=== PATIENT | female | born 1935 | race Caucasian/White ===

== ENCOUNTER 2023-01-25 11:17 | Inpatient (IN) | payer MEDICARE, OTHER ==
[2023-01-25] MEDS ORDERED: Iopamidol 300 61% 100 ML VIAL FS ONE (11:46)
[2023-01-25] MEDS ORDERED: Furosemide 40 MG/4 ML VIAL ONE (11:57)
[2023-01-25 12:14] LABS: #Monocytes 0.6 10x3/uL (0.0-1.1); #Neutrophils 7.5 10x3/uL (1.5-8.4); %Basophils 0.3 % (0.0-2.0); %Eosinophils 0.3 % (0.0-6.0); %Lymphocytes 7.4 % (18.0-47.0); %Monocytes 6.7 % (0.0-10.0); %Neutrophils 85.1 % (40.0-75.0); Hemoglobin 14.4 g/dL (12.0-15.5); Mean Corpuscular HGB CONC 34.2 g/dL (32.0-36.0); Mean Corpuscular Hemoglobin 30.5 pg (27.0-33.0); Mean Corpuscular Volume 89.2 fl (81.6-98.3); Mean Platelet Volume 9.9 fl (7.4-10.4); Platelet Count 253 10x3/uL (150-450); RBC Distribution Width 13.3 % (11.5-14.5); Red Blood Cell (RBC) Count 4.72 10x6/uL (3.90-5.03); White Blood Cell (WBC) Count 8.9 10x3/uL (3.5-10.5)
[2023-01-25 12:25] LABS: ALT (SGPT) 130 U/L (8-55); AST (SGOT) 101 U/L (5-34); Albumin 4.1 g/dL (3.4-4.8); Alkaline Phosphatase 82 U/L (40-110); Anion Gap 18 mmol/L (10-20); BUN (Urea Nitrogen) 21 mg/dL (9.8-20.1); Bilirubin, Total 0.9 mg/dL (0.2-1.2); Calc. Creatinine Clearance 0 mL/min (70-130); Calcium 9.2 mg/dL (7.8-10.44); Carbon Dioxide 17 mmol/L (23-31); Chloride 101 mmol/L (98-107); Estimated GFR 71; Globulin 2.8 g/dL (2.4-3.5); Glucose 120 mg/dL (83-110); Magnesium 2.1 mg/dL (1.6-2.6); Potassium 4.7 mmol/L (3.5-5.1); Protein, Total 6.9 g/dL (5.8-8.1); Sodium 131 mmol/L (136-145)
[2023-01-25 12:26] LABS: Actual Bicarbonate (HCO3v) 19 mEq/L (22-28); Base Excess -3.1 mEq/L (-2 - +2); Calcium, Ionized (venous) 1.16 mmol/L (1.16-1.32); Chloride (VBG) 95 mmol/L (98-106); Hemoglobin (Hb) 15.5 g/dL (11.7-16.1); Potassium (VBG) 4.68 mmol/L (3.70-5.30); Puncture Site Other Site; Sodium 134.8 mmol/L (133-146); pH (venous) 7.46 (7.32-7.43)
[2023-01-25 12:36] LABS: SARS-CoV-2 NAA Rapid Test Not Detected (NotDetected)
[2023-01-25 12:45] LABS: CKMB 3.4 ng/mL (0-6.6)
[2023-01-25] MEDS ORDERED: Aspirin Chewable 81 MG TAB ONE (12:58)
[2023-01-25] MEDS ORDERED: Acetaminophen 325 MG TAB PO PRN (13:21)
[2023-01-25] MEDS ORDERED: Senokot S 8.6-50 MG TAB PO PRN (13:21)
[2023-01-25 16:04] LABS: Troponin I 0.094 ng/mL (< 0.028)
[2023-01-25] MEDS ORDERED: Losartan Potassium 50 MG TAB PO SCH (16:30)
[2023-01-25 17:42] LABS: Thyroid Stimulating Hormone 4.5045 uIU/mL (0.35-4.94)
[2023-01-25 19:19] LABS: Troponin I 0.093 ng/mL (< 0.028)
[2023-01-25 19:21] LABS: Bilirubin Neg (Negative); Blood, Urine 10 (Negative); Clarity Clear (Clear); Glucose, Urine (Dipstick) Normal (Negative); Ketone, Urine Negative (Negative); Leukocyte Negative (Negative); Nitrite Negative (Negative); Protein, Urine (Dipstick) Negative (Neg-Trace); Specific Gravity, Urine 1.005 (1.005-1.030); Urobilinogen Normal mg/dL (Less than 2)
[2023-01-25 19:57] LABS: Bacteria/HPF Rare-Few HPF (None Seen); RBC/HPF 0-3 HPF (0-3); Squamous Epithelial 0-3 HPF (0-3); WBC/HPF 0-3 HPF (0-3)
[2023-01-25] MEDS: Diclofenac 1% 100 GM GEL TP SCH (21:30)
[2023-01-26] MEDS ORDERED: Melatonin 3 MG TAB PO SCH (00:30)
[2023-01-26] MEDS ORDERED: Guaifenesin DM 100-10/5 ML UDCUP PO SCH (00:30)
[2023-01-26 04:47] LABS: #Eosinphils 0.2 10x3/uL (0.0-0.5); #Monocytes 0.7 10x3/uL (0.0-1.1); #Neutrophils 4.9 10x3/uL (1.5-8.4); %Basophils 0.4 % (0.0-2.0); %Eosinophils 2.4 % (0.0-6.0); %Lymphocytes 17.1 % (18.0-47.0); %Monocytes 9.4 % (0.0-10.0); %Neutrophils 70.3 % (40.0-75.0); Hemoglobin 13.2 g/dL (12.0-15.5); Mean Corpuscular HGB CONC 34.5 g/dL (32.0-36.0); Mean Corpuscular Hemoglobin 30.6 pg (27.0-33.0); Mean Corpuscular Volume 88.7 fl (81.6-98.3); Mean Platelet Volume 10.1 fl (7.4-10.4); Platelet Count 230 10x3/uL (150-450); RBC Distribution Width 13.3 % (11.5-14.5); Red Blood Cell (RBC) Count 4.32 10x6/uL (3.90-5.03)
[2023-01-26 05:02] LABS: ALT (SGPT) 102 U/L (8-55); AST (SGOT) 70 U/L (5-34); Albumin 3.4 g/dL (3.4-4.8); Alkaline Phosphatase 69 U/L (40-110); Anion Gap 13 mmol/L (10-20); BUN (Urea Nitrogen) 16 mg/dL (9.8-20.1); Bilirubin, Total 0.9 mg/dL (0.2-1.2); Calc. Creatinine Clearance 40 mL/min (70-130); Calcium 8.8 mg/dL (7.8-10.44); Carbon Dioxide 25 mmol/L (23-31); Cardiac Risk 2.6 (Less than 4.5); Chloride 98 mmol/L (98-107); Cholesterol 140 mg/dl (< 200 Desired); Estimated GFR 72; Globulin 2.4 g/dL (2.4-3.5); Glucose 94 mg/dL (83-110); HDL Cholesterol 54 mg/dL (>60 Neg Risk); LDL Cholesterol, Calculated 73 mg/dL; Potassium 3.2 mmol/L (3.5-5.1); Protein, Total 5.8 g/dL (5.8-8.1); Sodium 133 mmol/L (136-145); Triglycerides 64 mg/dL (Less than 150)
[2023-01-26 05:14] LABS: Free T4 (Free Thyroxine) 1.25 ng/dL (0.70-1.48)
[2023-01-26] MEDS: Furosemide 40 MG/4 ML VIAL SLOW IVP SCH ×2 (06:27→14:51)
[2023-01-26] MEDS: Aspirin 81 mg Enteric Coated Tablet PO SCH (08:17)
[2023-01-26] MEDS: Diclofenac 1% 100 GM GEL TP SCH ×4 (08:17→21:18)
[2023-01-26] MEDS: Losartan Potassium 50 MG TAB PO SCH (08:17)
[2023-01-26] MEDS ORDERED: Furosemide 40 MG/4 ML VIAL SLOW IVP SCH (09:00)
[2023-01-26] MEDS ORDERED: Carvedilol 6.25 MG TAB PO SCH (11:00)
[2023-01-26] MEDS ORDERED: Electrolyte Replacement Protocol 1 EACH FS SCH (13:00)
[2023-01-26] MEDS: Potassium Chloride 20 MEQ TAB PO SCH ×2 (14:50→21:18)
[2023-01-26 17:20] LABS: Iron 51 ug/dL (50-170); Iron Binding Capacity, Total 326 mcg/dL (265-497)
[2023-01-26] MEDS: Carvedilol 6.25 MG TAB PO SCH (17:45)
[2023-01-26] MEDS ORDERED: Temazepam 15 MG CAP PO SCH (21:00)
[2023-01-26] MEDS: Atorvastatin Calcium 20 MG TAB PO SCH (21:17)
[2023-01-27 04:49] LABS: Phosphorus 3.5 mg/dL (2.3-4.7)
[2023-01-27 04:54] LABS: ALT (SGPT) 85 U/L (8-55); AST (SGOT) 52 U/L (5-34); Albumin 3.3 g/dL (3.4-4.8); Alkaline Phosphatase 65 U/L (40-110); Anion Gap 14 mmol/L (10-20); BUN (Urea Nitrogen) 20 mg/dL (9.8-20.1); Bilirubin, Total 0.7 mg/dL (0.2-1.2); Calc. Creatinine Clearance 31 mL/min (70-130); Calcium 8.8 mg/dL (7.8-10.44); Carbon Dioxide 24 mmol/L (23-31); Chloride 96 mmol/L (98-107); Estimated GFR 55; Globulin 2.3 g/dL (2.4-3.5); Glucose 96 mg/dL (83-110); Magnesium 1.9 mg/dL (1.6-2.6); Potassium 4.8 mmol/L (3.5-5.1); Protein, Total 5.6 g/dL (5.8-8.1); Sodium 129 mmol/L (136-145)
[2023-01-27 04:55] LABS: INR-International Normal Ratio 1.1; PTT 26.5 sec (22.0-33.0); Prothrombin Time 11.4 sec (9.5-12.1)
[2023-01-27] MEDS: Levothyroxine Sodium 75 MCG TAB PO SCH (05:43)
[2023-01-27] MEDS: Furosemide 40 MG/4 ML VIAL SLOW IVP SCH ×2 (05:43→15:25)
[2023-01-27] MEDS ORDERED: Magnesium 2 GM/50 ML(in water) 2 GM in Premix Bag 1 BAG IVPB SCH (06:00)
[2023-01-27] MEDS: Guaifenesin DM 100-10/5 ML UDCUP PO PRN ×2 (06:17→16:01)
[2023-01-27] MEDS: Carvedilol 6.25 MG TAB PO SCH ×2 (09:22→18:08)
[2023-01-27] MEDS: Aspirin 81 mg Enteric Coated Tablet PO SCH (09:22)
[2023-01-27] MEDS: Diclofenac 1% 100 GM GEL TP SCH ×4 (09:22→20:54)
[2023-01-27] MEDS: Losartan Potassium 50 MG TAB PO SCH (09:22)
[2023-01-27] MEDS ORDERED: Temazepam 15 MG CAP PO SCH (10:04)
[2023-01-27] MEDS ORDERED: Communication Order-Pharmacy FS SCH (16:15)
[2023-01-27 18:02] LABS: Bilirubin Neg (Negative); Blood, Urine Negative (Negative); Clarity Clear (Clear); Glucose, Urine (Dipstick) Normal (Negative); Ketone, Urine Negative (Negative); Leukocyte 500 (Negative); Nitrite Negative (Negative); Protein, Urine (Dipstick) 15 mg/dl (Neg-Trace); Specific Gravity, Urine 1.005 (1.005-1.030); Urobilinogen Normal mg/dL (Less than 2)
[2023-01-27 18:05] LABS: RBC/HPF 0-3 HPF (0-3); Renal Epithelial 0-3 HPF (None Seen); Squamous Epithelial 0-3 HPF (0-3)
[2023-01-27 18:06] LABS: Bacteria/HPF 3+ HPF (None Seen)
[2023-01-27] MEDS: rOPINIRole HCl 0.25 MG TAB PO PRN (20:54)
[2023-01-27] MEDS: Atorvastatin Calcium 20 MG TAB PO SCH (20:54)
[2023-01-27] MEDS: ALPRAZolam 0.25 MG TAB PO SCH (20:54)
[2023-01-28 04:46] LABS: ALT (SGPT) 69 U/L (8-55); AST (SGOT) 39 U/L (5-34); Albumin 3.3 g/dL (3.4-4.8); Alkaline Phosphatase 61 U/L (40-110); Anion Gap 16 mmol/L (10-20); BUN (Urea Nitrogen) 22 mg/dL (9.8-20.1); Bilirubin, Total 0.7 mg/dL (0.2-1.2); Calc. Creatinine Clearance 34 mL/min (70-130); Calcium 8.7 mg/dL (7.8-10.44); Carbon Dioxide 23 mmol/L (23-31); Chloride 95 mmol/L (98-107); Estimated GFR 61; Globulin 2.5 g/dL (2.4-3.5); Glucose 90 mg/dL (83-110); Potassium 3.8 mmol/L (3.5-5.1); Protein, Total 5.8 g/dL (5.8-8.1); Sodium 130 mmol/L (136-145)
[2023-01-28] MEDS ORDERED: Magnesium 2 GM/50 ML(in water) 2 GM in Premix Bag 1 BAG IVPB SCH (06:00)
[2023-01-28] MEDS: Levothyroxine Sodium 75 MCG TAB PO SCH (06:18)
[2023-01-28] MEDS: Aspirin 81 mg Enteric Coated Tablet PO SCH (06:18)
[2023-01-28] MEDS: Carvedilol 6.25 MG TAB PO SCH ×2 (06:18→17:12)
[2023-01-28] MEDS: Spironolactone 25 MG TAB PO SCH (09:00)
[2023-01-28] MEDS: Furosemide 40 MG TAB PO SCH (09:00)
[2023-01-28] MEDS: Potassium Chloride 10 MEQ TAB PO SCH (09:00)
[2023-01-28] MEDS: Losartan Potassium 50 MG TAB PO SCH (09:00)
[2023-01-28] MEDS: Diclofenac 1% 100 GM GEL TP SCH ×4 (09:00→20:29)
[2023-01-28] MEDS ORDERED: Nitroglycerin 50 MG/250 ML BOT 0 ML ONE (11:46)
[2023-01-28] MEDS ORDERED: Lidocaine 1% (PF) 30 ML VIAL ONE (11:47)
[2023-01-28] MEDS ORDERED: Heparin 10,000 UNITS/ 10 ML VIAL ONE (11:47)
[2023-01-28] MEDS ORDERED: Adenosine 6 MG/2 ML VIAL ONE (11:47)
[2023-01-28] MEDS ORDERED: Sodium Chloride 0.9% 1,000 ML ONE (11:48)
[2023-01-28] MEDS ORDERED: Fentanyl 100 MCG/2 ML VIAL ONE (12:35)
[2023-01-28] MEDS ORDERED: Midazolam HCl 2 mg/2 ml Vial ONE (12:36)
[2023-01-28] MEDS ORDERED: Atropine Sulfate 0.4 mg/1 ml Vial ONE (13:01)
[2023-01-28] MEDS ORDERED: TICAGRELOR 90 MG TABLET ONE (13:02)
[2023-01-28] MEDS ORDERED: Protamine Sulfate 250 MG/25 ML VIAL ONE (14:38)
[2023-01-28] MEDS ORDERED: Iopamidol 300 61% 100 ML VIAL FS ONE (15:04)
[2023-01-28] MEDS: cefTRIAXone\\ROCEPHIN 1 GM in Sodium Chloride 0.9% 100 ML IVPB SCH (15:46)
[2023-01-28] MEDS: Atorvastatin Calcium 40 MG TAB PO SCH (20:29)
[2023-01-28] MEDS: TICAGRELOR 90 MG TABLET PO SCH (20:29)
[2023-01-28] MEDS: ALPRAZolam 0.25 MG TAB PO SCH (20:29)
[2023-01-29 03:31] LABS: #Eosinphils 0.1 10x3/uL (0.0-0.5); #Monocytes 0.8 10x3/uL (0.0-1.1); #Neutrophils 6.6 10x3/uL (1.5-8.4); %Basophils 0.2 % (0.0-2.0); %Lymphocytes 6.9 % (18.0-47.0); %Monocytes 9.7 % (0.0-10.0); %Neutrophils 81.6 % (40.0-75.0); Hemoglobin 12.4 g/dL (12.0-15.5); Mean Corpuscular HGB CONC 34.2 g/dL (32.0-36.0); Mean Corpuscular Hemoglobin 30.4 pg (27.0-33.0); Mean Platelet Volume 9.8 fl (7.4-10.4); Platelet Count 259 10x3/uL (150-450); RBC Distribution Width 13.3 % (11.5-14.5); Red Blood Cell (RBC) Count 4.08 10x6/uL (3.90-5.03); White Blood Cell (WBC) Count 8.1 10x3/uL (3.5-10.5)
[2023-01-29 03:44] LABS: ALT (SGPT) 62 U/L (8-55); AST (SGOT) 72 U/L (5-34); Albumin 3.4 g/dL (3.4-4.8); Alkaline Phosphatase 62 U/L (40-110); Anion Gap 14 mmol/L (10-20); BUN (Urea Nitrogen) 18 mg/dL (9.8-20.1); Bilirubin, Total 1.1 mg/dL (0.2-1.2); Calc. Creatinine Clearance 32 mL/min (70-130); Calcium 8.6 mg/dL (7.8-10.44); Carbon Dioxide 26 mmol/L (23-31); Chloride 96 mmol/L (98-107); Estimated GFR 57; Globulin 2.5 g/dL (2.4-3.5); Glucose 97 mg/dL (83-110); Magnesium 2.5 mg/dL (1.6-2.6); Potassium 3.5 mmol/L (3.5-5.1); Protein, Total 5.9 g/dL (5.8-8.1); Sodium 132 mmol/L (136-145)
[2023-01-29] MEDS: Levothyroxine Sodium 75 MCG TAB PO SCH (05:44)
[2023-01-29] MEDS ORDERED: Potassium Chloride 20 MEQ TAB PO SCH (08:00)
[2023-01-29] MEDS ORDERED: Methyl Salicylate/Menthol 85 GM TUBE TOP PRN (08:29)
[2023-01-29] MEDS: Furosemide 40 MG TAB PO SCH (08:45)
[2023-01-29] MEDS: Potassium Chloride 10 MEQ TAB PO SCH (08:45)
[2023-01-29] MEDS: TICAGRELOR 90 MG TABLET PO SCH ×2 (08:45→21:27)
[2023-01-29] MEDS: Carvedilol 6.25 MG TAB PO SCH ×3 (08:45→16:34)
[2023-01-29] MEDS: Losartan Potassium 50 MG TAB PO SCH (08:45)
[2023-01-29] MEDS: Aspirin Chewable 81 MG TAB PO SCH (08:45)
[2023-01-29] MEDS: Spironolactone 25 MG TAB PO SCH (08:45)
[2023-01-29] MEDS: Diclofenac 1% 100 GM GEL TP SCH ×4 (08:48→21:39)
[2023-01-29] MEDS: rOPINIRole HCl 0.25 MG TAB PO PRN ×2 (12:48→21:40)
[2023-01-29] MEDS: cefTRIAXone\\ROCEPHIN 1 GM in Sodium Chloride 0.9% 100 ML IVPB SCH (12:49)
[2023-01-29] MEDS: Atorvastatin Calcium 40 MG TAB PO SCH (21:26)
[2023-01-29] MEDS: ALPRAZolam 0.25 MG TAB PO SCH (21:27)
[2023-01-30 03:57] LABS: #Basophils 0.1 10x3/uL (0.0-0.2); #Eosinphils 0.3 10x3/uL (0.0-0.5); #Monocytes 0.9 10x3/uL (0.0-1.1); #Neutrophils 5.6 10x3/uL (1.5-8.4); %Basophils 0.8 % (0.0-2.0); %Eosinophils 3.7 % (0.0-6.0); %Lymphocytes 12.1 % (18.0-47.0); %Monocytes 11.7 % (0.0-10.0); %Neutrophils 71.1 % (40.0-75.0); Hemoglobin 11.5 g/dL (12.0-15.5); Mean Corpuscular HGB CONC 33.8 g/dL (32.0-36.0); Mean Corpuscular Hemoglobin 30.4 pg (27.0-33.0); Mean Corpuscular Volume 89.9 fl (81.6-98.3); Platelet Count 225 10x3/uL (150-450); RBC Distribution Width 13.3 % (11.5-14.5); Red Blood Cell (RBC) Count 3.78 10x6/uL (3.90-5.03); White Blood Cell (WBC) Count 7.8 10x3/uL (3.5-10.5)
[2023-01-30 04:01] LABS: ALT (SGPT) 53 U/L (8-55); AST (SGOT) 87 U/L (5-34); Albumin 3.3 g/dL (3.4-4.8); Alkaline Phosphatase 60 U/L (40-110); Anion Gap 13 mmol/L (10-20); BUN (Urea Nitrogen) 19 mg/dL (9.8-20.1); Calc. Creatinine Clearance 28 mL/min (70-130); Calcium 8.5 mg/dL (7.8-10.44); Carbon Dioxide 26 mmol/L (23-31); Chloride 96 mmol/L (98-107); Estimated GFR 50; Globulin 2.4 g/dL (2.4-3.5); Glucose 91 mg/dL (83-110); Potassium 4.5 mmol/L (3.5-5.1); Protein, Total 5.7 g/dL (5.8-8.1); Sodium 130 mmol/L (136-145)
[2023-01-30] MEDS: Levothyroxine Sodium 75 MCG TAB PO SCH (06:05)
[2023-01-30 06:27] VITALS: BMI 20.5
[2023-01-30] MEDS: Losartan Potassium 50 MG TAB PO SCH (08:37)
[2023-01-30] MEDS: Spironolactone 25 MG TAB PO SCH (08:37)
[2023-01-30] MEDS: TICAGRELOR 90 MG TABLET PO SCH (08:38)
[2023-01-30] MEDS: Carvedilol 6.25 MG TAB PO SCH (08:38)
[2023-01-30] MEDS: Furosemide 40 MG TAB PO SCH (08:38)
[2023-01-30] MEDS: Aspirin Chewable 81 MG TAB PO SCH (08:41)
[2023-01-30] MEDS: Potassium Chloride 10 MEQ TAB PO SCH (08:41)
[2023-01-30] MEDS: Diclofenac 1% 100 GM GEL TP SCH ×2 (08:42→12:50)
[2023-01-30 10:19] VITALS: TEMP 97.5
[2023-01-30] MEDS: cefTRIAXone\\ROCEPHIN 1 GM in Sodium Chloride 0.9% 100 ML IVPB SCH (12:10)
[2023-01-30 12:21] VITALS: BP 125/59
== END 2023-01-30 17:00 | disposition home or self-care (01) | DRG 246 ==
LOC: CSHERS 11:17 → CSHTELE 15:59 → CSHIMCU 01-28 14:54
PROVIDERS: ADMIT Family Medicine; ATTEND Internal Medicine
PROC: 027135Z Dilation of Coronary Artery, Two Arteries with Two Drug-eluting Intraluminal Devices, Percutaneous Approach (ICD-10-PCS; principal; 2023-01-28)
PROC: 4A023N7 Measurement of Cardiac Sampling and Pressure, Left Heart, Percutaneous Approach (ICD-10-PCS; 2023-01-28)
PROC: B2151ZZ Fluoroscopy of Left Heart using Low Osmolar Contrast (ICD-10-PCS; 2023-01-28)
PROC: B2111ZZ Fluoroscopy of Multiple Coronary Arteries using Low Osmolar Contrast (ICD-10-PCS; 2023-01-28)
PROC: B241ZZ3 Ultrasonography of Multiple Coronary Arteries, Intravascular (ICD-10-PCS; 2023-01-28)
DX: I13.0 Hypertensive heart and chronic kidney disease with heart failure and stage 1 through stage 4 chronic kidney disease, or unspecified chronic kidney disease (principal); I50.43 Acute on chronic combined systolic (congestive) and diastolic (congestive) heart failure; E87.1 Hypo-osmolality and hyponatremia; N39.0 Urinary tract infection, site not specified; I24.8 Other forms of acute ischemic heart disease; E03.9 Hypothyroidism, unspecified; E78.5 Hyperlipidemia, unspecified; I49.3 Ventricular premature depolarization; E83.42 Hypomagnesemia; G47.00 Insomnia, unspecified; I25.10 Atherosclerotic heart disease of native coronary artery without angina pectoris; B95.2 Enterococcus as the cause of diseases classified elsewhere; I25.5 Ischemic cardiomyopathy; E87.6 Hypokalemia; R53.81 Other malaise; G89.29 Other chronic pain; N18.2 Chronic kidney disease, stage 2 (mild); M54.50 Low back pain, unspecified; Z90.49 Acquired absence of other specified parts of digestive tract; Z79.890 Hormone replacement therapy; Z98.890 Other specified postprocedural states; Z90.89 Acquired absence of other organs; Z85.038 Personal history of other malignant neoplasm of large intestine; Z20.822 Contact with and (suspected) exposure to COVID-19
CPT/HCPCS: 36415; 71045; 71275; 76705; 80053; 80061; 81001; 82553; 82728; 82805; 83540; 83550; 83735; 83880; 84100; 84300; 84436; 84439; 84443; 84484; 85025; 85347; 85379; 85610; 85652; 85730; 87077; 87086; 87186; 92928; 92978; 92979; 93005; 93010; 93306; 93458; 94760; 94762; 96374; 99152; 99153; C1725; C1726; C1753; C1760; C1769; C1874; C1887; C9600; J0153; J0461; J0696; J1644; J1650; J1940; J2001; J2250; J2720; J3010; J3475; J3490; J7050; Q9967; U0002

== ENCOUNTER 2024-01-08 10:49 | Emergency (ER) | payer MEDICARE, OTHER ==
[2024-01-08] MEDS ORDERED: Iopamidol 300 61% 100 ML VIAL FS ONE (11:23)
[2024-01-08 11:58] LABS: Bilirubin Neg (Negative); Blood, Urine 10 (Negative); Clarity Clear (Clear); Glucose, Urine (Dipstick) Normal (Negative); Ketone, Urine Negative (Negative); Leukocyte 100 (Negative); Nitrite Negative (Negative); Protein, Urine (Dipstick) Negative (Neg-Trace); Urobilinogen Normal mg/dL (Less than 2)
[2024-01-08 12:22] LABS: CAUTI Indications for Culture Dysuria,urgency,freq; RBC/HPF 0-3 HPF (0-3)
[2024-01-08 12:23] LABS: Bacteria/HPF Rare-Few HPF (None Seen); Squamous Epithelial 0-3 HPF (0-3); Urine Culture Reflex No No
[2024-01-08 12:49] LABS: #Basophils 0.04 10x3/uL (0.0-0.2); #Neutrophils 6.56 10x3/uL (1.5-8.4); %Basophils 0.5 % (0.0-2.0); %Eosinophils 1.2 % (0.0-6.0); %Lymphocytes 8.6 % (18.0-47.0); %Monocytes 9.7 % (0.0-10.0); %Neutrophils 79.5 % (40.0-75.0); Hematocrit 35.7 % (34.9-44.5); Hemoglobin 12.6 g/dL (12.0-15.5); Mean Corpuscular HGB CONC 35.3 g/dL (32.0-36.0); Mean Corpuscular Hemoglobin 32.2 pg (27.0-33.0); Mean Corpuscular Volume 91.3 fl (81.6-98.3); Mean Platelet Volume 10.3 fl (7.4-10.4); Platelet Count 188 10x3/uL (150-450); RBC Distribution Width 12.9 % (11.5-14.5); Red Blood Cell (RBC) Count 3.91 10x6/uL (3.90-5.03); White Blood Cell (WBC) Count 8.3 10x3/uL (3.5-10.5)
[2024-01-08 12:52] LABS: ALT (SGPT) 26 U/L (8-55); AST (SGOT) 28 U/L (5-34); Alkaline Phosphatase 73 U/L (40-110); Anion Gap 10 mmol/L (10-20); BUN (Urea Nitrogen) 30 mg/dL (9.8-20.1); Bilirubin, Total 0.6 mg/dL (0.2-1.2); Calc. Creatinine Clearance 0 mL/min (70-130); Calcium 9.3 mg/dL (7.8-10.44); Carbon Dioxide 26 mmol/L (23-31); Chloride 99 mmol/L (98-107); Estimated GFR 52; Globulin 3.1 g/dL (2.4-3.5); Glucose 98 mg/dL (83-110); Lipase 25 U/L (8-78); Potassium 4.2 mmol/L (3.5-5.1); Protein, Total 7.1 g/dL (5.8-8.1); Sodium 131 mmol/L (136-145)
[2024-01-08] MEDS ORDERED: Ketorolac Tromethamine 30 MG (1 mL) VIAL ONE (14:30)
[2024-01-08] MEDS ORDERED: Lidocaine 4% Patch TD SCH (14:45)
== END 2024-01-08 15:07 | disposition home or self-care (01) ==
LOC: CSHERS 10:49
DX: N39.0 Urinary tract infection, site not specified (principal); M54.50 Low back pain, unspecified
CPT/HCPCS: 74177; 80053; 81001; 83690; 85025; 93005; 96374; J1885; Q9967